=== PATIENT | female | born 1960 | race African-American/Black ===

== ENCOUNTER → 2019-10-13 08:00 | Outpatient (CLI) | payer OTHER | END | disposition home or self-care (01) | LOC: D.MAMMO 08:00 | PROVIDERS: ATTEND Family Medicine | DX: Z12.31 Encounter for screening mammogram for malignant neoplasm of breast (principal) ==

== ENCOUNTER 2020-12-11 00:09 | Emergency (ER) | payer OTHER ==
[~2020-12-11] VITALS: Ht 165.1 cm; Wt 109.1 kg
[2020-12-11 00:12] VITALS: Ht 165.1 cm; Wt 109.1 kg
[2020-12-11] MEDS ORDERED: AVAPRO150 MG PO (00:15)
[2020-12-11] MEDS ORDERED: CLONIDINE HCL0.1 MG PO (00:36)
[2020-12-11 00:46] LABS: HEMATOCRIT 41.5 % (36.0-48.0); MCH 32.5 pg (26.0-34.0); MCHC 33.7 g/dL (31.0-37.0); MCV 96.3 fL (80.0-100.0); MEAN PLATELET VOLUME 10.4 fL (7.4-10.4); NEUTROPHILS 43.7 % (40-80); PLATELET COUNT 197 10x3/uL (130-400); RBC 4.31 10x6/uL (4.00-5.40); RDW 13.8 % (11.5-14.5); WBC 6.5 10x3/uL (4.8-10.8)
[2020-12-11 00:58] LABS: CALC OSMOLALITY 276 mosm/kg (275-300); CALCIUM 8.8 mg/dL (8.5-10.1); CHLORIDE - SERUM 104 mmol/L (98-107); CREATININE - SERUM 0.7 mg/dL (0.6-1.3); GLUCOSE 88 mg/dL (74-106); POTASSIUM - SERUM 3.7 mmol/L (3.5-5.1); SODIUM 138 mmol/L (136-145); UREA NITROGEN 17 mg/dL (7-18); eGFR NON AFRICAN AMERICAN 90 mL/min (90-120)
[2020-12-11 01:13] LABS: ALBUMIN 3.5 g/dL (3.4-5.0); ALKALINE PHOSPHATASE 96 U/L (30-120); ALT (SGPT) 22 U/L (10-68); PRO BNP 96 pg/mL (0-125); PROTEIN - SERUM 6.9 g/dL (6.4-8.2); THYROID STIMULATING HORMONE 2.77 uIU/mL (0.36-3.74)
[2020-12-11 01:17] LABS: MAGNESIUM - SERUM 2.1 mg/dL (1.8-2.4)
[2020-12-11 01:20] LABS: BILIRUBIN NEGATIVE (NEGATIVE); KETONE NEGATIVE (NEGATIVE); NITRITE NEGATIVE (NEGATIVE); UROBILINOGEN NORMAL mg/dL (< 2)
[2020-12-11 01:41] VITALS: BP 181/94
== END 2020-12-11 01:41 | disposition home or self-care (01) ==
LOC: D.ER 00:09
PROVIDERS: Family Medicine
DX: I10 Essential (primary) hypertension (principal); R42 Dizziness and giddiness